=== PATIENT | female | born 1965 ===

== ENCOUNTER 2022-04-16 11:26 | Emergency (ER) | payer OTHER ==
[~2022-04-16] VITALS: Ht 167.6 cm; Wt 100.7 kg
[2022-04-16] MEDS ORDERED: LOSARTAN-HCTZ1 EACH (12:14)
== END 2022-04-16 18:45 | disposition home or self-care (01) ==
LOC: ER 11:26
DX: S80.862A Insect bite (nonvenomous), left lower leg, initial encounter (principal); W57.XXXA Bitten or stung by nonvenomous insect and other nonvenomous arthropods, initial encounter; Y93.89 Activity, other specified; Y92.89 Other specified places as the place of occurrence of the external cause; Y99.8 Other external cause status; I10 Essential (primary) hypertension